=== PATIENT | female | born 1960 | race Caucasian/White ===

== ENCOUNTER → 2023-06-25 14:02 | Outpatient (REF) | payer BC, SELFPAY | LOC: WDC 14:02 | PROVIDERS: ATTENDING PHYSICIAN Family Medicine | DX: N64.4 Mastodynia (principal) | CPT/HCPCS: 76642; 77061; 77065 ==

== ENCOUNTER → 2025-01-29 09:52 | Outpatient (REF) | payer BC, SELFPAY | LOC: WDC 09:52 | PROVIDERS: ATTENDING PHYSICIAN Family Medicine | DX: Z12.31 Encounter for screening mammogram for malignant neoplasm of breast (principal) | CPT/HCPCS: 77063; 77067 ==